=== PATIENT | male | born 1970 | race Two or more races ===

== ENCOUNTER 2017-06-25 15:50 | Inpatient (IN) | payer MEDICAID, OTHER ==
[~2017-06-25] VITALS: Ht 182.9 cm; Wt 80.3 kg
--- NOTE | 2017-06-25 16:00 | NUR ---
ROBY FROM HOME DT ALTERED MENTAL STATUS. PER REPORT PATIENT WAS NOT MAKING ANY SENSE WHEN TALKING. PATIENT RECEIVED AWAKE, HOWEVER NOTED CONFUSED. PT APPEARS IN NO APPARENT DISTRESS. SATING WELL OM ROOM AIR. SKIN IS WARM TO TOUCH AND NON DIAPHORETIC. PT ON PERITONEAL DIALYSIS, LAST DIALYSIS WAS YESTERDAY. GOWNED PT AND PLACED ON TELE MONITOR. PENDING MD MACHUCA
--- NOTE | 2017-06-25 16:25 | NUR ---
PT WAS TAKEN TO CT
[2017-06-25 16:50] LABS: BASOPHILS # (AUTO) 0.1 /CMM (0.0-0.2); BASOPHILS % (AUTO) 1.2 % (0.0-2.0); EOSINOPHILS # (AUTO) 0.1 /CMM (0.0-0.7); EOSINOPHILS % (AUTO) 0.7 % (0.0-6.0); HEMATOCRIT 27 % (39-51); HEMOGLOBIN 9.2 g/dL (13.5-17.5); LYMPHOCYTES # (AUTO) 1.1 /CMM (0.8-4.8); LYMPHOCYTES % (AUTO) 13.5 % (20.0-44.0); MEAN CORPUSCULAR HEMOGLOBIN 33 PG (26.0-33.0); MEAN CORPUSCULAR HGB CONC 34 g/dl (31.0-36.0); MEAN CORPUSCULAR VOLUME 97 fL (80-96); MONOCYTES # (AUTO) 0.5 /CMM (0.1-1.30); MONOCYTES % (AUTO) 5.8 % (2.0-12.0); NEUTROPHILS # (AUTO) 6.2 /CMM (1.8-8.9); NEUTROPHILS % (AUTO) 78.8 % (43.0-81.0); PLATELET COUNT (AUTO) 302 /CMM (150-450); RDW COEFFICIENT OF VARIATION 15.7 (11.5-15.0); RED BLOOD CELL COUNT(AUTO) 2.77 MIL/uL (4.5-6.0); WHITE BLOOD COUNT (AUTO) 7.9 K/uL (4.3-11.0)
--- NOTE | 2017-06-25 16:53 | NUR ---
MD MARTINS AT BEDSIDE
--- NOTE | 2017-06-25 17:05 | NUR ---
PATIENT STRONGLY REFUSED QUIROGA CATH
[2017-06-25 17:09] LABS: INR 1.19 (0.87-1.13); PROTHROMBIN TIME 12.4 SECS (9.5-12.7)
[2017-06-25] MEDS ORDERED: IV D5/0.45 NACL 1,000 ML IV PRN (17:17)
[2017-06-25] MEDS ORDERED: HYDROCODONE/APAP 5/325MG 1 EACH TABLET PO PRN (17:30)
[2017-06-25] MEDS ORDERED: ZOLPIDEM TARTRATE 5 MG TABLET PO PRN (17:30)
[2017-06-25] MEDS ORDERED: MAG HYDROX/AL HYDROX/SIMETH 30 ML UDC PO PRN (17:30)
[2017-06-25] MEDS ORDERED: ACETAMINOPHEN 325 MG TABLET PO PRN (17:30)
[2017-06-25] MEDS ORDERED: INSULIN REGULAR, HUMAN 100 UNIT/ML 3 ML VIAL SQ PRN (17:30)
[2017-06-25] MEDS ORDERED: MAGNESIUM HYDROXIDE 30 ML UDC PO PRN (17:30)
[2017-06-25] MEDS ORDERED: DEXTROSE 50%-WATER 50 ML DISP.SYRIN IV PRN (17:30)
[2017-06-25] MEDS ORDERED: ONDANSETRON HCL/PF 4 MG/2 ML VIAL IVP PRN (17:30)
[2017-06-25] MEDS ORDERED: Z GUARD REMEDY 2 OZ OINT TP PRN (17:30)
[2017-06-25 17:32] LABS: TROPONIN I 0.163 ng/mL (0.00-0.056)
[2017-06-25 17:35] LABS: ALBUMIN 3.6 g/dL (3.4-5.0); BILIRUBIN,DIRECT 0.1 mg/dL (0.0-0.2); BILIRUBIN,TOTAL 0.7 mg/dL (0.2-1.0); CALCIUM, SERUM 9.8 mg/dL (8.5-10.1)
[2017-06-25 17:38] LABS: CREATININE 28.4 mg/dL (0.6-1.3); POTASSIUM 6.2 mmol/L (3.5-5.1)
[2017-06-25] MEDS ORDERED: ALBUTEROL FS 2.5 MG/3 ML VIAL.NEB NEB ONE (18:00)
[2017-06-25] MEDS ORDERED: SODIUM POLYSTYRENE SULFONATE 15 G/60 ML BOTTLE PO ONE (18:00)
[2017-06-25] MEDS ORDERED: INSULIN REGULAR, HUMAN 100 UNIT/ML 10 ML VIAL IV ONE (18:00)
[2017-06-25] MEDS ORDERED: DEXTROSE 50%-WATER 50 ML DISP.SYRIN IV ONE (18:00)
[2017-06-25] MEDS ORDERED: DEXTROSE 50%-WATER 50 ML DISP.SYRIN IVP ONE (18:00)
[2017-06-25] MEDS ORDERED: ALBUTEROL FS 2.5 MG/3 ML VIAL.NEB ONE (18:14)
[2017-06-25] MEDS: BLOOD SUGAR DIAGNOSTIC 1 EACH STRIP IN SCH ×2 (18:21→21:54)
[2017-06-25] MEDS ORDERED: SODIUM POLYSTYRENE SULFONATE 15 G/60 ML BOTTLE ONE (18:38)
[2017-06-25] MEDS ORDERED: DEXTROSE 50%-WATER 50 ML DISP.SYRIN ONE (18:38)
[2017-06-25] MEDS ORDERED: INSULIN REGULAR, HUMAN 100 UNIT/ML 10 ML VIAL ONE (18:38)
[2017-06-25] MEDS ORDERED: MINO10TA PO (18:50)
[2017-06-25] MEDS ORDERED: ATOR40TA PO (18:50)
[2017-06-25] MEDS ORDERED: ATEN25TA PO (18:50)
[2017-06-25] MEDS ORDERED: FURO80TA3 PO (18:50)
[2017-06-25] MEDS ORDERED: SEVE800T8 PO (18:50)
[2017-06-25] MEDS ORDERED: AMLO10TA2 PO (18:50)
[2017-06-25] MEDS: LEVOFLOXACIN 750 MG /D5W 150ML 750 MG in PREMIX 1 EA IV SCH (18:55)
--- NOTE | 2017-06-25 19:06 | NUR ---
REPORT GIVEN TO DONTRELL LEWIS FOR ROBIN
--- NOTE | 2017-06-25 19:10 | NUR ---
RECEIVED REPORT FROM DONTRELL DIALLO FOR ROBIN
--- NOTE | 2017-06-25 19:11 | NUR ---
PT APPEARS AOX3.
--- NOTE | 2017-06-25 19:28 | NUR ---
INFORMED PT CURRENT BP. NNO AT THIS TIME.
[2017-06-25 19:36] LABS: IRON, SERUM 86 ug/dl (50-175); TOTAL IRON BINDING CAPACITY 212 ug/dl (250-450)
--- NOTE | 2017-06-25 19:53 | NUR ---
DOREEN 120-1
[2017-06-25] MEDS ORDERED: hydrALAZINE HCL IV 20 MG VIAL IV STA (19:59)
--- NOTE | 2017-06-25 20:07 | NUR ---
REPORT GIVEN TO DONTRELL LISA FOR DOREEN BED 120
[2017-06-25] MEDS ORDERED: hydrALAZINE HCL IV 20 MG VIAL ONE ×2 (20:08→22:37)
[2017-06-25 20:40] VITALS: BP 210/124
--- NOTE | 2017-06-25 21:10 | NUR ---
SPOKE TO MD RAMOS, AWARE OF HIGH BP , IVF ORDER, PT WITH HEADACHE 12/25, MD WILL ORDER MEDICATION
--- NOTE | 2017-06-25 22:15 | NUR ---
MD RAMOS CALLED AGAIN, WAITING FOR MEDICATION ORDER, MD AWARE OF ELEVATED BP, IVF AND PATIENT CONDITION. MD WITH NEW ORDER TO GIVE HYDRALAZINE 10MG IVP TIMES 1 NOW AND FOLLOW HYDRALAZINE 10 MGIVP Q 4HRS PRN FOR SBP >160, START NITRO PASTE 1G NOW Q 8HRS FOR SBP >160, STOP IVF.
[2017-06-25] MEDS ORDERED: NITROGLYCERIN PACKET 1 GM PACKET ONE (22:38)
[2017-06-25] MEDS: NITROGLYCERIN PACKET 1 GM PACKET TOP SCH (22:42)
[2017-06-25] MEDS ORDERED: hydrALAZINE HCL IV 20 MG VIAL IV ONE (23:00)
[2017-06-26] VITALS (19 sets, daily range): BP systolic 139–201; BP diastolic 68–113
[2017-06-26] MEDS ORDERED: hydrALAZINE HCL IV 20 MG VIAL ONE (04:21)
[2017-06-26] MEDS ORDERED: NITROGLYCERIN PACKET 1 GM PACKET ONE (04:22)
[2017-06-26] MEDS: NITROGLYCERIN PACKET 1 GM PACKET TOP SCH (04:28)
[2017-06-26] MEDS: hydrALAZINE HCL IV 20 MG VIAL IV PRN ×3 (04:28→12:28)
--- NOTE | 2017-06-26 07:31 | NUR ---
RN NOTES RECEIVED PT FROM SHOULDER SAWYER IN STABLE CONDITION. A&0X3 WITH PERIODS OF CONFUSION. SR ON THE TELE JEFFERY. RAC 20G IV SITE INTACT NO IVF. BED LOCKED AND IN LOWEST POSITION, CALL LIGHT WITHIN REACH, SIDE RAILS UPX3, WILL CONT TO JEFFERY.
[2017-06-26] MEDS: PANTOPRAZOLE 40 MG VIAL IV SCH (08:21)
[2017-06-26] MEDS: BLOOD SUGAR DIAGNOSTIC 1 EACH STRIP IN SCH ×4 (08:21→23:44)
--- NOTE | 2017-06-26 09:30 | NUR ---
RN NOTES PT CONTINUES TO STRONGLY REFUSE QUIROGA CATH.
--- NOTE | 2017-06-26 10:00 | NUR ---
RN NOTES PT HAS PERIODS OF EXTREME CONFUSION, STATING SENTENCES THAT MAKE NO SENSE. DR MAZA MADE AWARE, EEG ORDERED.
--- NOTE | 2017-06-26 10:45 | NUR ---
RN NOTES PT BP STILL HIGH AFTER IV HYDRALAZINE, ARIANNE ROBLERO MADE AWARE, AWAITING RESPONSE. NO NEURO CHANGES WILL CONT TO JEFFERY.
[2017-06-26] MEDS ORDERED: MINOXIDIL (10MG) 10 MG TABLET PO SCH (12:00)
[2017-06-26] MEDS: NITROGLYCERIN 30 GM TUBE TOP SCH ×2 (12:28→21:04)
--- NOTE | 2017-06-26 13:00 | NUR ---
RN NOTES POST HD PT BECAME MORE SLEEPY, PT BP WENT FROM 200 TO 105/65. TERMINAL SYSTEM OPERATOR OSBALDO BURGESS AT BEDSIDE, MADE AWARE. CT ORDERED. Addendum: 06/26/17 at 1645 by BENJAMIN CHAKRABORTY RN 1500
--- NOTE | 2017-06-26 15:30 | NUR ---
RN NOTES SHAWN BAZZI SUPERVISOR TRAIN OPERATIONS AT BEDSIDE. PT IS AROUSABLE, STILL ALTERED, CT SCAN ORDERED. BLOOD SUGAR CHECKED 114. BLOOD PRESSURE 200S.
--- NOTE | 2017-06-26 16:40 | NUR ---
RN NOTES PT RETURNED FROM CT SCAN, PER OSBALDO MONDRAGON WILDLIFE BIOLOGY TECHNICIAN NOT A CODE STROKE.
--- NOTE | 2017-06-26 17:45 | NUR ---
RN NOTES PT TRANSFERRED TO ICU PER ARIANNE ROBLERO TO START PT ON DRIP TO CONTROL BLOOD PRESSURE. REPORT GIVEN TO TOWER SUPERVISOR.
[2017-06-26] MEDS: NICARDIPINE IN NACL, ISO-OSM 200 ML IV PRN ×2 (18:07→23:35)
[2017-06-26] MEDS ORDERED: DEXTROSE 50%-WATER 50 ML DISP.SYRIN IV PRN (18:30)
[2017-06-26 20:24] LABS: BASOPHILS # (AUTO) 0.1 /CMM (0.0-0.2); BASOPHILS % (AUTO) 0.7 % (0.0-2.0); EOSINOPHILS % (AUTO) 0.1 % (0.0-6.0); HEMATOCRIT 27 % (39-51); LYMPHOCYTES # (AUTO) 1.2 /CMM (0.8-4.8); LYMPHOCYTES % (AUTO) 11.1 % (20.0-44.0); MEAN CORPUSCULAR HEMOGLOBIN 32 PG (26.0-33.0); MEAN CORPUSCULAR HGB CONC 34 g/dl (31.0-36.0); MEAN CORPUSCULAR VOLUME 96 fL (80-96); MONOCYTES % (AUTO) 8.7 % (2.0-12.0); NEUTROPHILS # (AUTO) 8.8 /CMM (1.8-8.9); NEUTROPHILS % (AUTO) 79.4 % (43.0-81.0); PLATELET COUNT (AUTO) 285 /CMM (150-450); RDW COEFFICIENT OF VARIATION 15.3 (11.5-15.0); RED BLOOD CELL COUNT(AUTO) 2.79 MIL/uL (4.5-6.0); WHITE BLOOD COUNT (AUTO) 11.1 K/uL (4.3-11.0)
--- NOTE | 2017-06-26 20:35 | NUR ---
agricultural systems specialist. INITIAL ASSESSMENT. RECEIVED THE PT REST ON THE BED. RESPONDING NAME. DEEP SLEEPING. CALLING NAME OPEN EYES ,OXYGEN 2L VIA NASAL CANNULA. SAT 98%. WOODWIND INSTRUMENT REPAIRER SHOWING NSR. IV RT UPPER ARM MID LINE. CARDENE 5MCG/H. LT HAND AV SHUNT WILL CONTINUE TO MONITOR VITALS.
[2017-06-26 20:39] LABS: ALBUMIN 3.5 g/dL (3.4-5.0); BILIRUBIN,TOTAL 0.6 mg/dL (0.2-1.0); MAGNESIUM 2.4 mg/dL (1.8-2.4); PHOSPHORUS 7.3 mg/dL (2.5-4.9); TOTAL PROTEIN, SERUM 6.8 g/dL (6.4-8.2)
[2017-06-26 20:43] LABS: CREATININE 24.8 mg/dL (0.6-1.3)
[2017-06-26 20:46] LABS: CREATINE KINASE MB 4.4 ng/mL (0-3.6); INR 1.2 (0.87-1.13); PROTHROMBIN TIME 12.5 SECS (9.5-12.7); THYROID STIMULATING HORMONE 0.741 uIU/mL (0.358-3.74)
--- NOTE | 2017-06-26 23:26 | NUR ---
agricultural labor camp manager TROPONIN .[phone]. DR MARTINS MADE AWARE.WILL CONTINUE TO MONITOR VITALS.
[2017-06-27] VITALS (69 sets, daily range): BP systolic 126–179; BP diastolic 55–102
[2017-06-27] MEDS: BLOOD SUGAR DIAGNOSTIC 1 EACH STRIP IN SCH ×4 (04:56→23:57)
[2017-06-27] MEDS: NITROGLYCERIN 30 GM TUBE TOP SCH ×3 (04:56→21:45)
[2017-06-27 05:18] LABS: BASOPHILS # (AUTO) 0.1 /CMM (0.0-0.2); BASOPHILS % (AUTO) 0.6 % (0.0-2.0); EOSINOPHILS # (AUTO) 0.1 /CMM (0.0-0.7); EOSINOPHILS % (AUTO) 0.6 % (0.0-6.0); HEMATOCRIT 24 % (39-51); HEMOGLOBIN 8.2 g/dL (13.5-17.5); LYMPHOCYTES # (AUTO) 1.5 /CMM (0.8-4.8); MEAN CORPUSCULAR HEMOGLOBIN 33 PG (26.0-33.0); MEAN CORPUSCULAR HGB CONC 34 g/dl (31.0-36.0); MEAN CORPUSCULAR VOLUME 99 fL (80-96); MONOCYTES # (AUTO) 1.1 /CMM (0.1-1.30); MONOCYTES % (AUTO) 11.4 % (2.0-12.0); NEUTROPHILS # (AUTO) 6.9 /CMM (1.8-8.9); NEUTROPHILS % (AUTO) 71.4 % (43.0-81.0); PLATELET COUNT (AUTO) 229 /CMM (150-450); RDW COEFFICIENT OF VARIATION 16.1 (11.5-15.0); RED BLOOD CELL COUNT(AUTO) 2.45 MIL/uL (4.5-6.0); WHITE BLOOD COUNT (AUTO) 9.6 K/uL (4.3-11.0)
[2017-06-27 05:43] LABS: CALCIUM, SERUM 9.8 mg/dL (8.5-10.1); MAGNESIUM 2.5 mg/dL (1.8-2.4); POTASSIUM 6.1 mmol/L (3.5-5.1)
[2017-06-27 06:08] LABS: TROPONIN I 0.746 ng/mL (0.00-0.056)
[2017-06-27 06:09] LABS: CREATININE 24.3 mg/dL (0.6-1.3)
--- NOTE | 2017-06-27 06:18 | NUR ---
TRUSS BUILDER. AM CARE, ORAL CARE, BED BATH GIVEN. LINEN CHANGED, REMAINING SAME OXYGEN 2L VIA NASAL CANNULA. TOLERATED WELL. SAT 98%. NO ACUTE DISTRESS NOTED. MAINTENANCE ANALYST SHOWING NSR. IV RT UPPER ARM MID LINE CARDENE 1MCG/HHOB ELEVATED. NPO. TURN AND REPOSITION Q2H. WILL CONTINUE TO MONITOR VITALS.
--- NOTE | 2017-06-27 06:29 | NUR ---
SOLE MOLDING MACHINE OPERATOR. MATTHEW OFF. BP 131/70. WILL CONTINUE TO MONITOR.
--- NOTE | 2017-06-27 07:45 | NUR ---
ICU/RN - Initial Notes Received pt in bed, alert x1. Reoriented patient to place and time. Respirations are even and unlabored. SR on tele monitor. Off Cardene gtt at this time, will monitor BP. Safety and comfort measures in place. Will continue to monitor pt closely.
[2017-06-27] MEDS: PANTOPRAZOLE 40 MG VIAL IV SCH (08:26)
[2017-06-27] MEDS: MINOXIDIL (2.5MG) 2.5 MG TABLET PO SCH (08:26)
[2017-06-27] MEDS: hydrALAZINE HCL IV 20 MG VIAL IV PRN ×2 (08:32→15:16)
--- NOTE | 2017-06-27 08:32 | NUR ---
ICU/RN - Notes Pt's BP 170/102, administered Hydralazine 10mg IVP as ordered. Oral antihypertensive medications administered as well. Pt able to swallow without aspiration. Will continue to monitor.
[2017-06-27] MEDS: NIFEdipine XL (30MG) 30 MG TAB PO SCH (14:58)
--- NOTE | 2017-06-27 15:11 | NUR ---
ICU/RN - Notes Hemodialysis completed with 2500 mL output. Per Ina Levine, pt cleared for DOREEN status.
--- NOTE | 2017-06-27 15:24 | NUR ---
ICU/RN - Notes Pt's BP 177/100, administered Hydralazine 10mg IVP as ordered. Oral antihypertensive medications administered as well. Pt able to swallow without aspiration. Will continue to monitor.
[2017-06-27] MEDS: LEVOFLOXACIN 750 MG /D5W 150ML 750 MG in PREMIX 1 EA IV SCH (17:18)
--- NOTE | 2017-06-27 19:57 | NUR ---
horticultural nursery assistant. initial assessment. received the pt rest on the bed, AWAKE, ALERT, FOLLOW COMMANDS. PROFESSIONAL ADVISOR SHOWING NSR. OXYGEN 2L VIA NASAL CANNULA. SAT 98%. NO ACUTE DISTRESS NOTED.IV RT UPPER ARM MID LINE. SALINE LOCK. LT HAND AV SHUNT. LT SIDE PERITONEAL HD CATH INTACT. AFEBRILE. WILL CONTINUE TO MONITOR VITALS.
--- NOTE | 2017-06-27 21:00 | NUR ---
DOREEN RN NOTE PT RECEIVED FROM ICU. A/O X4 AND ABLE TO VERBALIZE NEEDS. ORIENTED PT TO ROOM. SNACKS, WATER AND JUICE PUT AT BEDSIDE. CALL LIGHT WITHIN REACH. WILL CONTINUE TO MONITOR.
[2017-06-27 21:01] LABS: CALCIUM, SERUM 8.6 mg/dL (8.5-10.1); POTASSIUM 4.1 mmol/L (3.5-5.1)
[2017-06-27 21:02] LABS: CREATININE 19.7 mg/dL (0.6-1.3)
--- NOTE | 2017-06-27 21:03 | NUR ---
CRIMINAL JUSTICE FACULTY. TRANSFER THE PT TO ROOM 119, BED #2. REPORT GIVEN TO CASSANDRA JON. PT IS STABLE.
[2017-06-27] MEDS: VALSARTAN 80 MG TABLET PO SCH (21:44)
[2017-06-28] VITALS: BP 138/75
[2017-06-28] MEDS: INSULIN REGULAR, HUMAN 100 UNIT/ML 3 ML VIAL SQ PRN (00:01)
[2017-06-28 04:00] VITALS: BP 137/86
[2017-06-28] MEDS: BLOOD SUGAR DIAGNOSTIC 1 EACH STRIP IN SCH ×4 (05:35→23:58)
[2017-06-28] MEDS: NITROGLYCERIN 30 GM TUBE TOP SCH ×3 (05:36→21:28)
--- NOTE | 2017-06-28 06:58 | NUR ---
DOREEN RN CLOSING NOTE PT REMAINED STABLE DURING SHIFT. HOB ELEVATED. ALL NEEDS ATTENDED TO PROMPTLY. ALL DUE MEDS GIVEN ORDERED AND WELL TOLERATED. BP REMAINED WNL. NO C/O PAIN OR DISCOMFORT NOTED. CALL LIGHT WITH REACH. WILL ENDORSE TO NEXT SHIFT FOR CONTINUITY OF CARE.
--- NOTE | 2017-06-28 07:43 | NUR ---
TD RN OPENING RECEIVED PATIENT A./OX3 SLEEPING. NO S/S PAIN, SOB DIFFICULTY BREATHING. ALL NEEDS IN REACH, BED LOWERED AND LOCKED, RAILS UPX3 FOR SAFETY. HOB ELEVATED. CALL LIGHT IN REACH. TELE NSR. WILL ROUND PRN
[2017-06-28 07:44] LABS: BASOPHILS # (AUTO) 0.1 /CMM (0.0-0.2); BASOPHILS % (AUTO) 0.7 % (0.0-2.0); EOSINOPHILS # (AUTO) 0.4 /CMM (0.0-0.7); EOSINOPHILS % (AUTO) 4.5 % (0.0-6.0); HEMATOCRIT 27 % (39-51); HEMOGLOBIN 9.2 g/dL (13.5-17.5); LYMPHOCYTES # (AUTO) 1.5 /CMM (0.8-4.8); LYMPHOCYTES % (AUTO) 17.6 % (20.0-44.0); MEAN CORPUSCULAR HEMOGLOBIN 33 PG (26.0-33.0); MEAN CORPUSCULAR HGB CONC 34 g/dl (31.0-36.0); MEAN CORPUSCULAR VOLUME 97 fL (80-96); MONOCYTES # (AUTO) 0.7 /CMM (0.1-1.30); MONOCYTES % (AUTO) 8.5 % (2.0-12.0); NEUTROPHILS # (AUTO) 5.9 /CMM (1.8-8.9); NEUTROPHILS % (AUTO) 68.7 % (43.0-81.0); PLATELET COUNT (AUTO) 252 /CMM (150-450); RDW COEFFICIENT OF VARIATION 14.9 (11.5-15.0); RED BLOOD CELL COUNT(AUTO) 2.77 MIL/uL (4.5-6.0); WHITE BLOOD COUNT (AUTO) 8.6 K/uL (4.3-11.0)
[2017-06-28 08:00] VITALS: BP 159/76
[2017-06-28] MEDS: VALSARTAN 80 MG TABLET PO SCH ×2 (09:35→21:26)
[2017-06-28] MEDS: PANTOPRAZOLE 40 MG VIAL IV SCH (09:35)
[2017-06-28] MEDS: MINOXIDIL (2.5MG) 2.5 MG TABLET PO SCH (09:35)
[2017-06-28] MEDS: NIFEdipine XL (30MG) 30 MG TAB PO SCH (09:35)
[2017-06-28 11:28] LABS: CALCIUM, SERUM 9.4 mg/dL (8.5-10.1); MAGNESIUM 2.2 mg/dL (1.8-2.4); PHOSPHORUS 5.8 mg/dL (2.5-4.9); POTASSIUM 4.8 mmol/L (3.5-5.1)
[2017-06-28 11:46] LABS: CREATININE 21.1 mg/dL (0.6-1.3)
--- NOTE | 2017-06-28 14:30 | NUR ---
MS RN NOTES SPOKE TO [facility] THAT WE ARE OUT OF NITRO PASTE. THEY WILL SEND
[2017-06-28 16:00] VITALS: BP 131/81
--- NOTE | 2017-06-28 18:45 | NUR ---
MS RN CLOSING PATIENT STABLE. ALL DUE MEDS GIVEN AND ALL NEEDS MET. PATIENT NEEDS IN REACH, BED LOWERED AND LOCKED, RAILS UPX3 FOR SAFETY BED ALARM ON. CALL LIGHT IN REACH. CARE WILL BE ENDORSED TO RN FOR ROBIN
[2017-06-29] VITALS: BP 148/86
--- NOTE | 2017-06-29 00:01 | NUR ---
rn note 0000 bs 127
[2017-06-29] MEDS: NITROGLYCERIN 30 GM TUBE TOP SCH ×2 (05:00→13:42)
[2017-06-29] MEDS: BLOOD SUGAR DIAGNOSTIC 1 EACH STRIP IN SCH ×2 (05:09→12:58)
--- NOTE | 2017-06-29 05:18 | NUR ---
rn note bp 167/97 was noted , administered hydralazine 10 mg via iv
[2017-06-29] MEDS: hydrALAZINE HCL IV 20 MG VIAL IV PRN (05:59)
--- NOTE | 2017-06-29 06:54 | NUR ---
RN NOTE RECHECKED BP 147/78
[2017-06-29 06:56] LABS: BASOPHILS # (AUTO) 0.1 /CMM (0.0-0.2); BASOPHILS % (AUTO) 0.5 % (0.0-2.0); EOSINOPHILS # (AUTO) 0.4 /CMM (0.0-0.7); EOSINOPHILS % (AUTO) 4.2 % (0.0-6.0); HEMATOCRIT 27 % (39-51); LYMPHOCYTES # (AUTO) 1.8 /CMM (0.8-4.8); LYMPHOCYTES % (AUTO) 18.8 % (20.0-44.0); MEAN CORPUSCULAR HEMOGLOBIN 33 PG (26.0-33.0); MEAN CORPUSCULAR HGB CONC 33 g/dl (31.0-36.0); MEAN CORPUSCULAR VOLUME 100 fL (80-96); MONOCYTES # (AUTO) 1.1 /CMM (0.1-1.30); MONOCYTES % (AUTO) 11.7 % (2.0-12.0); NEUTROPHILS # (AUTO) 6.1 /CMM (1.8-8.9); NEUTROPHILS % (AUTO) 64.8 % (43.0-81.0); PLATELET COUNT (AUTO) 222 /CMM (150-450); RDW COEFFICIENT OF VARIATION 16.4 (11.5-15.0); RED BLOOD CELL COUNT(AUTO) 2.71 MIL/uL (4.5-6.0); WHITE BLOOD COUNT (AUTO) 9.4 K/uL (4.3-11.0)
[2017-06-29 07:14] LABS: CALCIUM, SERUM 9.1 mg/dL (8.5-10.1); MAGNESIUM 1.9 mg/dL (1.8-2.4); PHOSPHORUS 5.4 mg/dL (2.5-4.9); POTASSIUM 4.9 mmol/L (3.5-5.1)
[2017-06-29 07:20] LABS: CREATININE 17.9 mg/dL (0.6-1.3)
--- NOTE | 2017-06-29 07:42 | NUR ---
MS RN CLOSING PATIENT STABLE, NO DISTRESS NOTED. ALL DUE MEDS GIVEN AND ALL NEEDS MET. PATIENT VITAL SIGNS ARE STABLE.PATIENT BELONGINGS IN REACH, BED LOWERED AND LOCKED, RAILS UPX3 FOR SAFETY BED ALARM ON. CALL LIGHT IN REACH. CARE WILL BE ENDORSED TO AM RN FOR ROBIN
[2017-06-29 08:00] VITALS: BP 137/82
[2017-06-29] MEDS: PANTOPRAZOLE 40 MG VIAL IV SCH (09:00)
[2017-06-29] MEDS: VALSARTAN 80 MG TABLET PO SCH (09:58)
[2017-06-29] MEDS: MINOXIDIL (2.5MG) 2.5 MG TABLET PO SCH (09:58)
[2017-06-29] MEDS: NIFEdipine XL (30MG) 30 MG TAB PO SCH (09:59)
[2017-06-29] MEDS: INSULIN REGULAR, HUMAN 100 UNIT/ML 3 ML VIAL SQ PRN (13:14)
[2017-06-29] MEDS ORDERED: MINO2.5T PO (14:00)
[2017-06-29] MEDS ORDERED: VALS80TA2 PO (14:01)
[2017-06-29] MEDS ORDERED: NIFE30TA89 PO (14:01)
[2017-06-29 15:02] VITALS: BP 127/69
[2017-06-29 16:00] VITALS: BP 114/70
--- NOTE | 2017-06-29 18:12 | NUR ---
Stable patient with ambulatory gait discharged to home. Intravenous catheter and midline on right arm removed. No active bleeding, erythema, edema, or pain. Sites covered with clean dry gauze. Patient sent via taxi home. Given sandwiches for dinner en route.
== END 2017-06-29 17:57 | disposition home or self-care (01) | DRG 190 ==
LOC: ER 15:51 → TRANSITION 18:25 → TELE-TD 19:55 → TELE1 21:02 → TELE-TD 21:05 → ICU 06-26 17:46 → TELE-TD 06-27 20:48 → MEDSG1 06-28 11:56
PROC: 05H533Z Insertion of Infusion Device into Right Subclavian Vein, Percutaneous Approach (ICD-10-PCS; principal; 2017-06-26)
PROC: 5A1D70Z Performance of Urinary Filtration, Intermittent, Less than 6 Hours Per Day (ICD-10-PCS; principal; 2017-06-26)
PROC: 5A1D70Z Performance of Urinary Filtration, Intermittent, Less than 6 Hours Per Day (ICD-10-PCS; 2017-06-27)
PROC: 5A1D70Z Performance of Urinary Filtration, Intermittent, Less than 6 Hours Per Day (ICD-10-PCS; 2017-06-28)
DX: I21.A1 Myocardial infarction type 2 (principal); G93.41 Metabolic encephalopathy; E11.22 Type 2 diabetes mellitus with diabetic chronic kidney disease; I12.0 Hypertensive chronic kidney disease with stage 5 chronic kidney disease or end stage renal disease; N18.6 End stage renal disease; Z99.2 Dependence on renal dialysis; E87.5 Hyperkalemia; D63.1 Anemia in chronic kidney disease; Z91.15 Patient's noncompliance with renal dialysis; E78.5 Hyperlipidemia, unspecified; I69.354 Hemiplegia and hemiparesis following cerebral infarction affecting left non-dominant side; Z79.899 Other long term (current) drug therapy
CPT/HCPCS: 36415; 70450-TC; 71045-TC; 80048-TC; 80053-TC; 80061-TC; 80076-TC; 82150-TC; 82553-TC; 82746; 82962-TC; 83540-TC; 83605-TC; 83690-TC; 83735-TC; 84100-TC; 84443-TC; 84484-TC; 85025-TC; 85730-TC; 87040-TC; 90935-TC; 93307-TC; 95819-TC; A4216; A4606; C9113; G0480; J0360; J1815; J1956; J2405; J3490; J7030; Z7610

== ENCOUNTER 2021-11-06 18:06 | Inpatient (IN) | payer MEDICAID, OTHER ==
[~2021-11-06] VITALS: Ht 182.9 cm; Wt 74.8 kg
[~2021-11-06 18:06] MED LIST: ATOR40TA PO; MINO2.5T PO; NIFE-35 PO; SEVE800T8 PO; VALS80TA2 PO
[2021-11-06] MEDS ORDERED: CLON0.1T PO (18:22)
[2021-11-06] MEDS ORDERED: CINA30TA2 PO (18:22)
[2021-11-06] MEDS ORDERED: AMLO2.5T4 PO (18:22)
[2021-11-06] MEDS ORDERED: SEVE800T8 PO (18:22)
[2021-11-06] MEDS ORDERED: CALC0.253 PO (18:22)
[2021-11-06] MEDS ORDERED: CLOP75TA15 PO (18:22)
--- NOTE | 2021-11-06 18:26 | NUR ---
pt bibra c/o having palpiation while walking. pt denies chest pain. pt connected to monitor.
--- NOTE | 2021-11-06 18:45 | NUR ---
unable to collect urine pt is anuric made aware.
--- NOTE | 2021-11-06 19:12 | NUR ---
covid swab done sent to lab.
[2021-11-06 19:50] LABS: CALCIUM, SERUM 9.6 mg/dL (8.5-10.1); CARBON DIOXIDE 29 mmol/L (21-32); CHLORIDE 99 mmol/L (98-107); GLUCOSE 110 mg/dL (74-106); POTASSIUM 4.5 mmol/L (3.5-5.1); SODIUM SERUM 139 mmol/L (136-145); UREA NITROGEN, BLOOD 56 mg/dL (7-18)
[2021-11-06 19:51] LABS: THYROID STIMULATING HORMONE 0.513 uIU/mL (0.358-3.74)
--- NOTE | 2021-11-06 19:53 | NUR ---
CRE 13.3
[2021-11-06 19:55] LABS: CREATININE 13.6 mg/dL (0.6-1.3)
[2021-11-06 20:12] LABS: BASOPHILS # (AUTO) 0.1 K/uL (0.0-0.2); BASOPHILS % (AUTO) 1.6 % (0.0-2.0); EOSINOPHILS % (AUTO) 2.3 % (0.0-6.0); HEMATOCRIT 40 % (39-51); LYMPHOCYTES # (AUTO) 0.8 K/uL (0.8-4.8); LYMPHOCYTES % (AUTO) 15.7 % (20.0-44.0); MEAN CORPUSCULAR HGB CONC 33 g/dl (31.0-36.0); MEAN CORPUSCULAR VOLUME 97 fL (80-96); MONOCYTES # (AUTO) 0.6 K/uL (0.1-1.30); MONOCYTES % (AUTO) 11.9 % (2.0-12.0); NEUTROPHILS # (AUTO) 3.3 K/uL (1.8-8.9); NEUTROPHILS % (AUTO) 68.5 % (43.0-81.0); PLATELET COUNT (AUTO) 150 K/uL (150-450); RED BLOOD CELL COUNT(AUTO) 4.08 MIL/uL (4.5-6.0); WHITE BLOOD COUNT (AUTO) 4.8 K/uL (4.3-11.0)
--- NOTE | 2021-11-06 20:25 | NUR ---
REPORT GIVEN TO SABRINA Diaz RN FOR ROBIN
--- NOTE | 2021-11-06 20:30 | NUR ---
PT GOING TO ROOM 314-1
[2021-11-06] MEDS ORDERED: ENOXAPARIN SODIUM 80 MG/0.8 ML DISP.SYRIN SQ SCH (21:00)
--- NOTE | 2021-11-06 21:18 | NUR ---
TROPONIN 79; LAW AWARE
--- NOTE | 2021-11-06 21:20 | NUR ---
DR. NORRIS SPEAKING TO JENIFER LITIGATION ATTORNEY HOSPITALIST REGARDING ADMISSION
[2021-11-06] MEDS ORDERED: ONDANSETRON HCL/PF 4 MG/2 ML VIAL IVP PRN (21:30)
--- NOTE | 2021-11-06 21:37 | NUR ---
PT TRANSFERRED TO 3W VIA ACLS PROTOCOL. VSS. ALL BELONGINGS WITH PT. PT TOLERATED TRANSFER WELL.
--- NOTE | 2021-11-06 21:39 | NUR ---
pt transferred to 3 w per acls protocol.
[2021-11-06] MEDS: SEVELAMER CARBONATE 800 MG TABLET PO SCH (21:52)
[2021-11-06] MEDS: ATORVASTATIN 10 MG TABLET PO SCH (21:53)
[2021-11-06] MEDS: CLONIDINE HCL 0.1 MG TABLET PO SCH (21:54)
[2021-11-06 22:00] VITALS: BP 170/104
[2021-11-06] MEDS ORDERED: ENOXAPARIN SODIUM 80 MG/0.8 ML DISP.SYRIN SQ ONE (22:00)
[2021-11-06] MEDS: ACETAMINOPHEN 325 MG TABLET PO PRN (22:27)
--- NOTE | 2021-11-06 23:21 | NUR ---
ANIMAL RIDES MANAGER NOTES PT ARRIVED VIA GURNEY @2134 WITH EMT AND RN. ABLE TO AMBULATE TO BED. AOx4, ABLE TO MAKE NEEDS KNOWN. ON RA AND TOLERATING WELL. NO SOB NOTED. NO S/SX OF RESPIRATORY DISTRESS NOTED. TELE MONITOR DETECTS SINUS RHYTHM WITH RATE OF 84. IV ACCESS IN R HAND #22G. IV IS INTACT, PATENT, AND FLUSHING WELL. OMKAR AV SHUNT AND RCW PERMACATH ALSO PRESENT. SAFETY PRECAUTIONS IN PLACE: BED IN LOWEST, LOCKED POSITION, SIDERAILS UPx2, AND BRAKES ON. TABLE AND CALL LIGHT WITHIN REACH. WILL CONTINUE TO MONITOR.
[2021-11-07] VITALS: BP 161/108
[2021-11-07 04:00] VITALS: BP 174/85
[2021-11-07] MEDS ORDERED: DEXTROSE 50%-WATER 50 ML DISP.SYRIN IV PRN (06:30)
--- NOTE | 2021-11-07 06:42 | NUR ---
RN CLOSING NOTES PT IN BED, ASLEEP, AWAKENS TO VERBAL STIMULI. AOx4, ABLE TO MAKE NEEDS KNOWN. ON RA AND TOLERATING WELL. NO SOB NOTED. NO S/SX OF RESPIRATORY DISTRESS NOTED. TELE MONITOR DETECTS SINUS RHYTHM WITH RATE OF 84. IV ACCESS IN R HAND #22G. IV IS INTACT, PATENT, AND FLUSHING WELL. OMKAR AV SHUNT AND RCW PERMACATH ALSO PRESENT. ALL ORDERS CARRIED OUT. ALL NEEDS MET. PT KEPT CLEAN AND DRY. SAFETY PRECAUTIONS IN PLACE: BED IN LOWEST, LOCKED POSITION, SIDERAILS UPx2, AND BRAKES ON. TABLE AND CALL LIGHT WITHIN REACH. WILL ENDORSE TO ONCOMING SHIFT FOR ROBIN.
[2021-11-07 06:47] LABS: BASOPHILS # (AUTO) 0.1 K/uL (0.0-0.2); BASOPHILS % (AUTO) 1.2 % (0.0-2.0); EOSINOPHILS % (AUTO) 5.8 % (0.0-6.0); HEMATOCRIT 37 % (39-51); LYMPHOCYTES # (AUTO) 1.3 K/uL (0.8-4.8); LYMPHOCYTES % (AUTO) 32.7 % (20.0-44.0); MEAN CORPUSCULAR HGB CONC 33 g/dl (31.0-36.0); MEAN CORPUSCULAR VOLUME 97 fL (80-96); MONOCYTES # (AUTO) 0.5 K/uL (0.1-1.30); MONOCYTES % (AUTO) 11.7 % (2.0-12.0); NEUTROPHILS % (AUTO) 48.6 % (43.0-81.0); PLATELET COUNT (AUTO) 142 K/uL (150-450); RED BLOOD CELL COUNT(AUTO) 3.76 MIL/uL (4.5-6.0); WHITE BLOOD COUNT (AUTO) 4.1 K/uL (4.3-11.0)
--- NOTE | 2021-11-07 07:21 | NUR ---
RN OPENING NOTE- PT IN BED, ASLEEP, AWAKENS EASILY. AOX4, ABLE TO MAKE NEEDS KNOWN. ON RA AND TOLERATING WELL. NO SOB NOTED. NO S/SX OF RESPIRATORY DISTRESS NOTED. TELE MONITOR DETECTS SINUS - 76. IV ACCESS IN R HAND #22G. IV IS INTACT. OMKAR AV SHUNT AND RT CHEST PERMACATH ALSO PRESENT. ALL NEEDS MET. PT KEPT CLEAN AND DRY. SAFETY PRECAUTIONS IN PLACE: BED IN LOCKED POSITION, SIDERAILS UPx2. TABLE AND CALL LIGHT WITHIN REACH. MONITOR / ASSIST
[2021-11-07 07:33] LABS: CALCIUM, SERUM 9.6 mg/dL (8.5-10.1); MAGNESIUM 2.4 mg/dL (1.8-2.4); POTASSIUM 4.7 mmol/L (3.5-5.1)
[2021-11-07 07:41] LABS: PHOSPHORUS 10.4 mg/dL (2.5-4.9)
[2021-11-07 08:00] VITALS: BP 155/110
[2021-11-07] MEDS: BLOOD SUGAR DIAGNOSTIC 1 EACH STRIP IN SCH ×4 (08:10→22:00)
[2021-11-07] MEDS: AMLODIPINE BESYLATE 2.5 MG TABLET PO SCH (08:10)
[2021-11-07] MEDS: CLOPIDOGREL BISULFATE 75 MG TABLET PO SCH (08:10)
[2021-11-07] MEDS: SEVELAMER CARBONATE 800 MG TABLET PO SCH ×3 (08:11→17:04)
[2021-11-07] MEDS: CLONIDINE HCL 0.1 MG TABLET PO SCH ×3 (08:11→16:21)
[2021-11-07] MEDS: CALCITRIOL 0.25 MCG CAPSULE PO SCH (08:11)
[2021-11-07] MEDS: CINACALCET HCL 30 MG TABLET PO SCH (08:11)
[2021-11-07] MEDS ORDERED: IOHEXOL-350 100 ML VIAL IV ONE (11:09)
[2021-11-07] MEDS ORDERED: IV NS 0.9% 250 ML IV ONE (11:09)
[2021-11-07] MEDS ORDERED: NITROGLYCERIN 0.4 MG/TAB BOTTLE ONE (11:09)
[2021-11-07] MEDS ORDERED: METOPROLOL TARTRATE INJ 5 MG/5 ML AMPUL ONE (11:09)
[2021-11-07] MEDS ORDERED: CT SWABBABLE VALVE TRANS SET 1 EA INFUS.SET MC ONE (11:09)
[2021-11-07] MEDS: METOPROLOL TARTRATE INJ 5 MG/5 ML AMPUL IVP PRN ×2 (11:25→11:30)
[2021-11-07] MEDS ORDERED: NITROGLYCERIN 0.4 MG/TAB BOTTLE SL ONE (11:30)
[2021-11-07 12:00] VITALS: BP 154/101
[2021-11-07] MEDS: INSULIN REGULAR, HUMAN 100 UNIT/ML 3 ML VIAL SQ PRN ×2 (12:20→17:04)
[2021-11-07 16:00] VITALS: BP 175/100
[2021-11-07] MEDS: ACETAMINOPHEN 325 MG TABLET PO PRN (16:21)
--- NOTE | 2021-11-07 16:22 | NUR ---
RN NOTE- C/O HEADACHE. PROB RELATED TO BP- TYLENOL 650 MG ADMINISTERED W HTN RX
--- NOTE | 2021-11-07 18:44 | NUR ---
RN CLOSING NOTE- PT IN BED, RECEIVING HEMODIALYSIS, . AOX4, ABLE TO MAKE NEEDS KNOWN. ON RA AND TOLERATING WELL. NO SOB NOTED. NO S/SX OF RESPIRATORY DISTRESS NOTED. TELE MONITOR DETECTS SINUS - 76. IV ACCESS IN R HAND #22G. IV IS INTACT. OMKAR AV SHUNT AND RT CHEST PERMACATH ALSO PRESENT. ALL NEEDS MET. PT KEPT CLEAN AND DRY. SAFETY PRECAUTIONS IN PLACE: BED IN LOCKED POSITION, SIDERAILS UPx2. TABLE AND CALL LIGHT WITHIN REACH. MONITOR / ASSIST
[2021-11-07 20:00] VITALS: BP 155/98
--- NOTE | 2021-11-07 20:03 | NUR ---
FIRST GRADE TEACHER OPENING NOTES: RECEIVED PATIENT AWAKE IN BED, BED IN LOW POSITION, CALL LIGHTS WITHIN REACH, NO COMPLAIN OF PAIN AND DISCOMFORT AT THIS TIME PATIENT IS A/OX4 AMBULATORY, ON ROOM AIR SATURATING WELL, CURRENTLY ON ONGOING DIALYSIS, ON STABLE CONDITION ON TELE MONITORING SR-71, PATIENT KEPT CLEAN AND DRY ALL NEEDS MET WILL CONTINUE TO MONITOR.
--- NOTE | 2021-11-07 21:00 | NUR ---
RN NOTES: HD DIALYSIS WAS DONE AT 2029 WITH 2 LTRS OUT PATIENT REMAIN STABLE, NO CHANGES IN CONDITION WAS OBSERVED, NO BLEEDING WA NOTED ON SITE. WILL CONTINUE TO MONITOR.
[2021-11-07] MEDS: ATORVASTATIN 10 MG TABLET PO SCH (22:45)
--- NOTE | 2021-11-07 22:56 | NUR ---
RN NOTES: BLOOD SUGAR -102- NO INSULIN GIVEN PER SLIDING SCALE- OUT OF PARAMETER
[2021-11-08] VITALS: BP_SYST 106; BP_SYST 155; BP_DIAS 61; BP_DIAS 98
[2021-11-08] MEDS: ACETAMINOPHEN 325 MG TABLET PO PRN ×3 (02:26→17:40)
[2021-11-08 04:00] VITALS: BP 144/98
--- NOTE | 2021-11-08 06:55 | NUR ---
MANAGER OF CUSTOMER BILLING CLOSING NOTES: PATIENT SLEEP IN BED COMFORTABLY, BED IN LOW POSITION CALL LIGHTS WITHIN REACH, NO COMPLAIN OF PAIN AND DISCOMFORT AT THIS TIME, PT. IS A/OX4 AMBULATORY ON ROOM AIR SATURATING WELL ON TELE MONITORING SB-53 NO SYMPTOMS WAS OBSERVED, PATIENT WITH IV LINE AT RAC#20SL, AND R HAND #22 SL,WITH RCW PERMACATH -2 LITERS URINE OUTPUT AND OMKAR AV SHUNT PATIENT KEPT CLEAN AND DRY ALL NEEDS MET, ENDORSE TO INCOMING SHIFT.
[2021-11-08 07:11] LABS: CALCIUM, SERUM 9.2 mg/dL (8.5-10.1); MAGNESIUM 2.1 mg/dL (1.8-2.4); PHOSPHORUS 7.8 mg/dL (2.5-4.9); POTASSIUM 4.8 mmol/L (3.5-5.1)
[2021-11-08 07:45] LABS: BASOPHILS # (AUTO) 0.1 K/uL (0.0-0.2); BASOPHILS % (AUTO) 1.4 % (0.0-2.0); EOSINOPHILS % (AUTO) 6.6 % (0.0-6.0); HEMATOCRIT 37 % (39-51); HEMOGLOBIN 12.2 g/dL (13.5-17.5); LYMPHOCYTES # (AUTO) 0.8 K/uL (0.8-4.8); LYMPHOCYTES % (AUTO) 21.6 % (20.0-44.0); MEAN CORPUSCULAR HGB CONC 33 g/dl (31.0-36.0); MEAN CORPUSCULAR VOLUME 95 fL (80-96); MONOCYTES # (AUTO) 0.3 K/uL (0.1-1.30); MONOCYTES % (AUTO) 8.5 % (2.0-12.0); NEUTROPHILS # (AUTO) 2.4 K/uL (1.8-8.9); NEUTROPHILS % (AUTO) 61.9 % (43.0-81.0); PLATELET COUNT (AUTO) 134 K/uL (150-450); RED BLOOD CELL COUNT(AUTO) 3.87 MIL/uL (4.5-6.0); WHITE BLOOD COUNT (AUTO) 3.9 K/uL (4.3-11.0)
--- NOTE | 2021-11-08 07:50 | NUR ---
RN OPENING NOTE PATIENT AWAKE IN BED RESTING, A/O X4. NO S/S OF PAIN NOTED AT THIS TIME. ON ROOM AIR, NO DISTRESS OR SHORTNESS OF BREATH NOTED. IV ACCESS RAC #20G, INTACT, PATENT AND FLUSHING WELL. PATIENT WITH EXTERNAL COUNTY AUDITOR WITH CURRENT READING OF SR, NO CARDIAC DISTRESS NOTED. FALL AND SAFETY MEASURES IN PLACE, BED ALARM ON BED IN LOW AND LOCK POSITION, CALL LIGHT AND TABLE WITHIN EASY REACH, SIDE RAILS UP X2. WILL CONTINUE TO MONITOR.
[2021-11-08] MEDS: BLOOD SUGAR DIAGNOSTIC 1 EACH STRIP IN SCH ×3 (07:52→17:06)
[2021-11-08 08:00] VITALS: BP 140/100
[2021-11-08] MEDS: CLOPIDOGREL BISULFATE 75 MG TABLET PO SCH (08:56)
[2021-11-08] MEDS: SEVELAMER CARBONATE 800 MG TABLET PO SCH ×3 (08:56→17:07)
[2021-11-08] MEDS: CALCITRIOL 0.25 MCG CAPSULE PO SCH (08:56)
[2021-11-08] MEDS: CINACALCET HCL 30 MG TABLET PO SCH (08:57)
[2021-11-08] MEDS: CLONIDINE HCL 0.1 MG TABLET PO SCH ×3 (08:58→17:07)
[2021-11-08] MEDS: AMLODIPINE BESYLATE 2.5 MG TABLET PO SCH (08:58)
[2021-11-08 12:00] VITALS: BP 154/110
[2021-11-08 16:00] VITALS: BP 161/102
[2021-11-08 17:07] VITALS: BP 161/102
--- NOTE | 2021-11-08 18:45 | NUR ---
SEWER PIPE LAYER NOTE PATIENT DISCHARGE IN STABLE MEDICAL CONDITION, A/O X4. V/S TAKEN, STABLE AND RECORDED. NO IV ACCESS. SKIN ASSESSMENT DONE, SKIN INTACT. NAME ARM BAND REMOVED. ALL BELONGINGS CHECKED AND SIGNED. HEALTH TEACHING AND DISCHARGE INSTRUCTIONS GIVEN AND VERBALIZED UNDERSTANDING. REPORT GIVEN TO NURSE MIGUEL ANGEL AT [place]. PATIENT LEFT UNIT VIA GURNEY WITH NO SIGNS OF DISTRESS, ACCOMPANIED BY PARAMEDICS. CHARGE NURSE AWARE OF DISCHARGE.
== END 2021-11-08 18:30 | DRG 190 ==
LOC: ER 18:09 → TELE 20:00
PROVIDERS: ADMIT Nurse Practitioner Acute Care; ATTEND Family Medicine
PROC: 5A1D70Z Performance of Urinary Filtration, Intermittent, Less than 6 Hours Per Day (ICD-10-PCS; principal; 2021-11-07)
DX: I25.10 Atherosclerotic heart disease of native coronary artery without angina pectoris (principal); I21.A1 Myocardial infarction type 2; I12.0 Hypertensive chronic kidney disease with stage 5 chronic kidney disease or end stage renal disease; E11.22 Type 2 diabetes mellitus with diabetic chronic kidney disease; N18.6 End stage renal disease; I69.354 Hemiplegia and hemiparesis following cerebral infarction affecting left non-dominant side; D63.8 Anemia in other chronic diseases classified elsewhere; E11.40 Type 2 diabetes mellitus with diabetic neuropathy, unspecified; Z99.2 Dependence on renal dialysis; Z20.822 Contact with and (suspected) exposure to COVID-19; Z85.528 Personal history of other malignant neoplasm of kidney; Z95.5 Presence of coronary angioplasty implant and graft; Z98.890 Other specified postprocedural states; Z79.02 Long term (current) use of antithrombotics/antiplatelets; Z79.899 Other long term (current) drug therapy
CPT/HCPCS: 36415; 71045-TC; 75574; 80048-TC; 80061-TC; 82962-TC; 83735-TC; 83880; 84100-TC; 84443-TC; 84484-TC; 85025-TC; 86706; 87081-TC; 87340; 90935-TC; 93307-TC; G0378; J1650; J1815; J3490; J7030; J7050; Q9967